=== PATIENT | female | born 1990 | race Caucasian/White ===

== ENCOUNTER 2021-01-29 15:03 | Emergency (ER) | payer MEDICAID, SELFPAY ==
--- NOTE | ~2021-01-29 | XR_ITS ---
EXAMINATION: XR CHEST CLINICAL INFORMATION: Chest pain COMPARISON: No films available at this time TECHNIQUE: Frontal view of the chest was obtained. FINDINGS: No acute finding. Lung andrew are clear. The mediastinal contours are within normal limits. No effusion. XR/XR chest 1V IMPRESSION: No acute finding
[2021-01-29 15:07] VITALS: BP 116/74; BP 121/83; PULSE 86; PULSE 90; RESP 16; TEMP 37.1; O2SAT 100; BMI 21.7
--- NOTE | 2021-01-29 16:57 | ECG_ITS ---
Test Reason : ANXIETY Blood Pressure : / mmHG Vent. Rate : 088 BPM Atrial Rate : 088 BPM P-R Int : 120 ms QRS Dur : 078 ms QT Int : 362 ms P-R-T Axes : 080 -75 030 degrees QTc Int : 438 ms Normal sinus rhythm with sinus arrhythmia Left anterior fascicular block Abnormal ECG When compared with ECG of 18-JUN-2013 12:58, No significant change was found Referred By: Choco Barrientos Electronically Signed By:PRITI JAMES
[2021-01-29] MEDS: ondansetron HCL 4 MG/2 ML VIAL IVPUSH (17:02)
[2021-01-29 17:25] VITALS: BP 113/63; PULSE 79; RESP 20; TEMP 37; O2SAT 100
[2021-01-29] MEDS: LORazepam 2 MG/ML VIAL 0.5 MG IVPUSH (17:44)
[2021-01-29 17:51] LABS: MANUAL DIFF FLAG NO
[2021-01-29 17:53] LABS: Basophils Percent Auto 0.4 % (0-2); Eosinophils Percent Auto 0.1 % (0-4); Imm Gran Abs Auto 0.02 X10*3/uL (0.00-0.03); Imm Gran Pct Auto 0.2 % (0.0-0.4); Lymphocytes Percent Auto 11.7 % (20-40); Mean Corpuscular HGB Conc 33.3 g/dl (31.0-35.0); Mean Corpuscular Hemoglobin 29.1 pg (27.0-33.0); Mean Corpuscular Volume 87.4 fL (80-98); Mean Platelet Volume 10.2 fL (9.4-12.3); Monocytes Absolute Auto 0.3 X10*3/uL (0.1-1.2); Monocytes Percent Auto 3.9 % (2-11); Neutrophils Absolute Auto 7.1 X10*3/uL (2.0-8.3); Neutrophils Percent Auto 83.7 % (45-73); Platelet Count 180 X10*3/uL (160-400); Red Blood Count 4.46 X10*6/uL (4.20-5.50); Red Cell Distribution Width 11.9 % (11.0-16.0); White Blood Count 8.5 X10*3/uL (4.8-10.8)
[2021-01-29 17:54] LABS: Glucose Urine UA NEG (NEG); Leukocyte Esterase Urine NEG (NEG); Nitrite Urine NEG (NEG); PH 5.5 (5.0-8.0); Specific Gravity - Urine 1.015 (1.005-1.025); Urine Blood NEG (NEG); Urine Ketones NEG (NEG); Urine Protein NEG (NEG-TRACE)
[2021-01-29 17:57] LABS: Appearance Urine CLEAR; Color Urine YELLOW; UPreg QC Valid YES; Urine Pregnancy NEGATIVE (NEGATIVE)
[2021-01-29 18:06] LABS: Bacteria Urine TRACE /LPF; RBC Urine 0 /HPF (0); Squamous Epithelial Cell Urine 1+ /LPF; WBC Urine 0 /HPF (0-4)
[2021-01-29 18:24] VITALS: BP 108/69; PULSE 66; RESP 12; O2SAT 98
[2021-01-29] MEDS: Acetaminophen 325 MG TABLET 650 MG PO (18:30)
[2021-01-29 18:31] LABS: Influenza A PCR NEGATIVE (Negative); Influenza B PCR NEGATIVE (Negative); Resp Syncy Virus RNA Qual PCR NEGATIVE (Negative); SARS COV2 PCR INHOUSE NEGATIVE (Negative)
[2021-01-29 18:32] LABS: Alanine Aminotransferase 13 U/L (0-31); Albumin Level 4.2 g/dL (3.5-5.0); Alkaline Phosphatase 86 U/L (39-117); Anion Gap 11 (12-20); Aspartate Amino Transferase 15 U/L (5-31); Bilirubin Total 0.6 mg/dL (0.0-1.0); Blood Urea Nitrogen 9 mg/dL (9-16); Calcium 8.9 mg/dL (8.4-10.2); Carbon Dioxide 26 mmol/L (22-29); Chloride 105 mmol/L (96-108); Creatinine Clr Calc Pharmacy 105.9; Estimated Glomerular Filt Rate > 60; Glucose Random 102 mg/dL (60-115); Potassium 4.5 mmol/L (3.3-5.1); Sodium 137 mmol/L (135-145); Total Protein 6.8 g/dL (6.5-8.0)
[2021-01-29 18:32] LABS: Amphetamine Screen Urine Not Detected (Not Detect); Barbiturates, Urine Not Detected (Not Detect); Benzodiazepines Screen Urine Not Detected (Not Detect); Cannabinoid Screen Urine Not Detected (Not Detect); Cocaine Screen Urine Not Detected (Not Detect); Opiate Screen Urine POSITIVE (Not Detect); Phencyclidine Screen Urine Not Detected (Not Detect)
[2021-01-29 18:38] LABS: Troponin-I High Sensitivity < 3.5 ng/L (<3.5-17.0)
[2021-01-29 18:52] LABS: Thyroid Stimulating Hormone 1.02 uIU/mL (0.32-4.0)
[2021-01-29 19:12] VITALS: BP 123/69; PULSE 71; RESP 16; O2SAT 98
--- NOTE | 2021-01-29 19:33 | MHC.RECOVSUP ---
Reason for consult o Current location:12 o Identified substance use concern: opioid - Withdrawal - Support ? Intervention: o Community resources provided o Harm reduction discussion ? Plan: ? Additional information: I was able to speak with pt and she was very reserved and was very hesitant in engaging with . pt was not interested in resources that had anything to do with MAT or ATS. pt also stated that she does not want to go to any ATS that was state ran. she would much rather go to a private ATS even if she has to pay for one. I tried to self disclose just enough to have her engage but she was not willing. I was not not able to gather any information on her living accommodations and she did not share if she has a hx of mental health. I did leave her with information and encouraged her to call and give it a try.
[2021-01-29] MEDS: Lidocaine HCl Viscous 2 % 15 ML SOLUTION 10 ML MUCOUS MEM (19:35)
[2021-01-29] MEDS: Magnesium Hydrox/Alum Hydrox 30 ML ORAL.SUSP PO (19:35)
[2021-01-29 20:00] VITALS: BP 111/70; PULSE 63; RESP 15; TEMP 36.9; O2SAT 99
--- NOTE | 2021-01-29 20:15 | ED_ITS ---
HPI - Chest Pain General Chief Complaint: Anxiety Stated Complaint: chest pain Time Seen by Provider: 01/29/21 16:28 Source: EMS Mode of arrival: EMS Limitations: no limitations History of Present Illness HPI narrative: This is otherwise healthy 30-year-old female who denies significant past medical history presenting via EMS from urgent care where she reported she has been having chest discomfort since last night with episode of palpitations states started last night felt like burning sensation in the epigastrium and has had similar episodes in the past with anxiety. She otherwise denies any nausea or vomiting. Denies any history of upper respiratory symptoms, cough or fever. No lower extremity swelling. No abdominal pain nausea vomiting or diarrhea. MD complaint: chest discomfort Timing of current episode: episodic Prior episodes: Yes Onset: during rest Pain location: substernal Pain radiation: none Severity: mild Quality: burning Relieving factors: nothing Exacerbating factors: nothing Associated symptoms: palpitations Treatment prior to arrival: none Related Data Previous Rx's Medication Instructions Recorded omeprazole magnesium [Prilosec OTC] 20 mg PO BID #14 tab 01/29/21 Allergies Allergy/AdvReac Type Severity Reaction Status Date / Time No Known Allergies Allergy Unverified 08/13/20 16:55 Review of Systems Review of Systems: Constitutional: No Weight loss, No Fever, No Chills, No Night Sweats, No Fatigue, No Malaise ENT/Mouth: No Hearing loss, No Ear Pain, No Nasal Congestion, No Sinus Pain, No Hoarseness, No sore throat, No Rhinorrhea, No Swallowing Difficulty Eyes: No Eye Pain, No Swelling, No Redness, No Foreign Body, No Discharge, No Vision Changes Cardiovascular: As noted per HPI-chest Pain, No SOB, No Dyspnea on Exertion, No Orthopnea, No Edema, No Palpitations Respiratory: No Cough, No Sputum, No Wheezing, No Smoke Exposure, No Dyspnea Gastrointestinal: No Nausea, No Vomiting, No Diarrhea, No Constipation, No abdominal Pain, No Hematochezia, No Melena Genitourinary: No Dysuria, No Urinary Frequency, No Hematuria, No Urinary Incontinence, No Urgency, No Flank Pain, No Urinary Flow Changes, No Hesitancy Musculoskeletal: No joint pain, No Myalgias, No Joint Swelling Skin: No Skin Lesions, No rash Neuro: No Weakness, No Numbness, No Paresthesias, No Loss of Consciousness, No Dizziness, No Headache Psych: No Social Issues Heme/Lymph: No Bruising, No Bleeding,No Lymphadenopathy Endocrine: No Polyuria, No Polydipsia, No Temperature Intolerance Yes all other systems are reviewed and are negative [facility] Social History Social History Smoking Status: Current every day smoker Use of substances other than those prescribed or required for medical reasons: No Advance Directives: No Advance Directives Information Provided: Yes Physical Exam Vital Signs: Vital Signs: Last Vital Signs Temp 98.5 F 01/29/21 20:00 Pulse 63 01/29/21 20:00 Resp 15 01/29/21 20:00 BP 111/70 01/29/21 20:00 Pulse Ox 99 01/29/21 20:00 Body Mass Index 21.7 Reviewed Const: General: cooperative, healthy appearing and anxious; No intoxicated appearing Nutritional Appearance: average body habitus Orientation/consciousness: patient oriented x3 HENMT: Head: Yes normal to inspection Ears: hearing grossly normal bilaterally Eyes: General: appearance normal, both eyes and all related structures Visual Arreola: normal visual arreola by confrontation Neck: Neck: Yes normal visual inspection, No positive Brudzinski's sign, No positive Kernig's sign and No tender Thyroid: Thyroid normal Chest: Chest palpation & inspection: normal inspection of the chest Resp: Effort & Inspection: normal respiratory effort Auscultation: clear to auscultation bilaterally Cardio: Jugular venous distension: no JVD Rhythm: regular rhythm Heart sounds: S1 normal heart sound present and S2 normal heart sound present GI: Inspection: Yes normal to inspection Palpation (GI): Soft to palpation Percussion: Yes normal to percussion Auscultation: normal bowel sounds : General: Yes no CVA tenderness Back/Spine/Pelvis: Back: no CVA tenderness Skin: General skin exam: no rashes or lesions noted Neuro: General: patient oriented x3 Extrem: General: Yes normal to inspection Course Course Course Narrative: Feels better after GI cocktail seems very anxious given 0.5 mg lorazepam. 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 She otherwise overall feels better. Lab work overall reassuring. personal coach met with patient does not feel she has a problem with opiates and knows the evidence of following up in the future she needs to. MDM - Chest Pain Differential Diagnosis Differential diagnosis: Likely atypical chest pain and costochondritis; Unlikely fracture of rib, pneumothorax, stable angina, unstable angina pectoris, st elevation myocardial infarction, chest pain and biliary colic Differential diagnosis: Anxiety, reflux Lab Data Attestation: I reviewed the patient's lab results. Result diagrams: 01/29/21 17:44 01/29/21 17:44 Labs: Lab Results 01/29/21 01/29/21 01/29/21 Range/Units 17:31 17:31 17:31 WBC (4.8-10.8) X10*3/uL RBC (4.20-5.50) X10*6/uL Hgb (12.0-16.0) g/dl Hct (37-47) % MCV (80-98) fL MCH (27.0-33.0) pg MCHC (31.0-35.0) g/dl RDW (11.0-16.0) % Plt Count (160-400) X10*3/uL MPV (9.4-12.3) fL Immature Gran % (Auto) (0.0-0.4) % Neut % (Auto) (45-73) % Lymph % (Auto) (20-40) % [place] % (Auto) (2-11) % Eos % (Auto) (0-4) % Baso % (Auto) (0-2) % Lymph # (Auto) (1.2-4.9) X10*3/uL [place] # (Auto) (0.1-1.2) X10*3/uL Eos # (Auto) (0.0-0.4) X10*3/uL Baso # (Auto) (0.0-0.2) X10*3/uL Abs Immat Gran (auto) (0.00-0.03) X10*3/uL Absolute Neuts (auto) (2.0-8.3) X10*3/uL Absolute Nucleated RBC (0.0-0.012) X10*3/uL Nucleated RBC % (auto) (0.0-0.2) /100WBC Sodium (135-145) mmol/L Potassium (3.3-5.1) mmol/L Chloride (96-108) mmol/L Carbon Dioxide (22-29) mmol/L Anion Gap (12-20) BUN (9-16) mg/dL Creatinine (0.5-1.4) mg/dL Estim Creat Clear Calc Estimated GFR Random Glucose (60-115) mg/dL Calcium (8.4-10.2) mg/dL Total Bilirubin (0.0-1.0) mg/dL AST (5-31) U/L ALT (0-31) U/L Alkaline Phosphatase (39-117) U/L Troponin I High Sens (<3.5-17.0) ng/L Total Protein (6.5-8.0) g/dL Albumin (3.5-5.0) g/dL TSH (0.32-4.0) uIU/mL Urine Color YELLOW Urine Appearance CLEAR Urine pH 5.5 (5.0-8.0) Ur Specific [place] 1.015 (1.005-1.025) Urine Protein NEG (NEG-TRACE) MG/DL Urine Glucose (UA) NEG (NEG) MG/DL Urine Ketones NEG (NEG) MG/DL Urine Blood NEG (NEG) Urine Nitrite NEG (NEG) Ur Leukocyte Esterase NEG (NEG) Urine RBC 0 (0) /HPF Urine WBC 0 (0-4) /HPF Ur Squamous Epith Cells 1+ /LPF Urine Bacteria TRACE /LPF Urine Test NEGATIVE (NEGATIVE) Urine Opiates Screen POSITIVE H (Not Detect) Ur Barbiturates Screen Not Detected (Not Detect) Ur Phencyclidine Scrn Not Detected (Not Detect) Ur Amphetamines Screen Not Detected (Not Detect) U Benzodiazepines Scrn Not Detected (Not Detect) Urine Cocaine Screen Not Detected (Not Detect) U Marijuana (THC) Screen Not Detected (Not Detect) Coronavirus (PCR) (Negative) Influenza Type A (PCR) (Negative) Influenza Type B (PCR) (Negative) RSV RNA Qual (PCR) (Negative) 01/29/21 01/29/21 01/29/21 Range/Units 17:44 17:44 17:44 WBC 8.5 (4.8-10.8) X10*3/uL RBC 4.46 (4.20-5.50) X10*6/uL Hgb 13.0 (12.0-16.0) g/dl Hct 39.0 (37-47) % MCV 87.4 (80-98) fL MCH 29.1 (27.0-33.0) pg MCHC 33.3 (31.0-35.0) g/dl RDW 11.9 (11.0-16.0) % Plt Count 180 (160-400) X10*3/uL MPV 10.2 (9.4-12.3) fL Immature Gran % (Auto) 0.2 (0.0-0.4) % Neut % (Auto) 83.7 H (45-73) % Lymph % (Auto) 11.7 L (20-40) % [place] % (Auto) 3.9 (2-11) % Eos % (Auto) 0.1 (0-4) % Baso % (Auto) 0.4 (0-2) % Lymph # (Auto) 1.0 L (1.2-4.9) X10*3/uL [place] # (Auto) 0.3 (0.1-1.2) X10*3/uL Eos # (Auto) 0.0 (0.0-0.4) X10*3/uL Baso # (Auto) 0.0 (0.0-0.2) X10*3/uL Abs Immat Gran (auto) 0.02 (0.00-0.03) X10*3/uL Absolute Neuts (auto) 7.1 (2.0-8.3) X10*3/uL Absolute Nucleated RBC 0.000 (0.0-0.012) X10*3/uL Nucleated RBC % (auto) 0.0 (0.0-0.2) /100WBC Sodium 137 (135-145) mmol/L Potassium 4.5 (3.3-5.1) mmol/L Chloride 105 (96-108) mmol/L Carbon Dioxide 26 (22-29) mmol/L Anion Gap 11 L (12-20) BUN 9 (9-16) mg/dL Creatinine 0.74 (0.5-1.4) mg/dL Estim Creat Clear Calc 105.9 Estimated GFR > 60 Random Glucose 102 (60-115) mg/dL Calcium 8.9 (8.4-10.2) mg/dL Total Bilirubin 0.6 (0.0-1.0) mg/dL AST 15 (5-31) U/L ALT 13 (0-31) U/L Alkaline Phosphatase 86 (39-117) U/L Troponin I High Sens < 3.5 (<3.5-17.0) ng/L Total Protein 6.8 (6.5-8.0) g/dL Albumin 4.2 (3.5-5.0) g/dL TSH 1.02 (0.32-4.0) uIU/mL Urine Color Urine Appearance Urine pH (5.0-8.0) Ur Specific [place] (1.005-1.025) Urine Protein (NEG-TRACE) MG/DL Urine Glucose (UA) (NEG) MG/DL Urine Ketones (NEG) MG/DL Urine Blood (NEG) Urine Nitrite (NEG) Ur Leukocyte Esterase (NEG) Urine RBC (0) /HPF Urine WBC (0-4) /HPF Ur Squamous Epith Cells /LPF Urine Bacteria /LPF Urine Test (NEGATIVE) Urine Opiates Screen (Not Detect) Ur Barbiturates Screen (Not Detect) Ur Phencyclidine Scrn (Not Detect) Ur Amphetamines Screen (Not Detect) U Benzodiazepines Scrn (Not Detect) Urine Cocaine Screen (Not Detect) U Marijuana (THC) Screen (Not Detect) Coronavirus (PCR) (Negative) Influenza Type A (PCR) (Negative) Influenza Type B (PCR) (Negative) RSV RNA Qual (PCR) (Negative) 01/29/21 Range/Units 17:44 WBC (4.8-10.8) X10*3/uL RBC (4.20-5.50) X10*6/uL Hgb (12.0-16.0) g/dl Hct (37-47) % MCV (80-98) fL MCH (27.0-33.0) pg MCHC (31.0-35.0) g/dl RDW (11.0-16.0) % Plt Count (160-400) X10*3/uL MPV (9.4-12.3) fL Immature Gran % (Auto) (0.0-0.4) % Neut % (Auto) (45-73) % Lymph % (Auto) (20-40) % [place] % (Auto) (2-11) % Eos % (Auto) (0-4) % Baso % (Auto) (0-2) % Lymph # (Auto) (1.2-4.9) X10*3/uL [place] # (Auto) (0.1-1.2) X10*3/uL Eos # (Auto) (0.0-0.4) X10*3/uL Baso # (Auto) (0.0-0.2) X10*3/uL Abs Immat Gran (auto) (0.00-0.03) X10*3/uL Absolute Neuts (auto) (2.0-8.3) X10*3/uL Absolute Nucleated RBC (0.0-0.012) X10*3/uL Nucleated RBC % (auto) (0.0-0.2) /100WBC Sodium (135-145) mmol/L Potassium (3.3-5.1) mmol/L Chloride (96-108) mmol/L Carbon Dioxide (22-29) mmol/L Anion Gap (12-20) BUN (9-16) mg/dL Creatinine (0.5-1.4) mg/dL Estim Creat Clear Calc Estimated GFR Random Glucose (60-115) mg/dL Calcium (8.4-10.2) mg/dL Total Bilirubin (0.0-1.0) mg/dL AST (5-31) U/L ALT (0-31) U/L Alkaline Phosphatase (39-117) U/L Troponin I High Sens (<3.5-17.0) ng/L Total Protein (6.5-8.0) g/dL Albumin (3.5-5.0) g/dL TSH (0.32-4.0) uIU/mL Urine Color Urine Appearance Urine pH (5.0-8.0) Ur Specific [place] (1.005-1.025) Urine Protein (NEG-TRACE) MG/DL Urine Glucose (UA) (NEG) MG/DL Urine Ketones (NEG) MG/DL Urine Blood (NEG) Urine Nitrite (NEG) Ur Leukocyte Esterase (NEG) Urine RBC (0) /HPF Urine WBC (0-4) /HPF Ur Squamous Epith Cells /LPF Urine Bacteria /LPF Urine Test (NEGATIVE) Urine Opiates Screen (Not Detect) Ur Barbiturates Screen (Not Detect) Ur Phencyclidine Scrn (Not Detect) Ur Amphetamines Screen (Not Detect) U Benzodiazepines Scrn (Not Detect) Urine Cocaine Screen (Not Detect) U Marijuana (THC) Screen (Not Detect) Coronavirus (PCR) NEGATIVE (Negative) Influenza Type A (PCR) NEGATIVE (Negative) Influenza Type B (PCR) NEGATIVE (Negative) RSV RNA Qual (PCR) NEGATIVE (Negative) Imaging Data Chest x-ray: Radiologist's impression: [address] [id number] ReportSigned Patient: Zee Antony AMR#: [id number]: 1990Acct:[id number]/Sex: / FADM Date: 01/29/21Loc: EDAttending Dr: Ordering Physician: Choco Barrientos NP Date of Service: 01/29/21 Procedure(s): XR chest 1V Accession Number(s): [id number] cc: Choco Barrietnos JELLY MAKER~ EXAMINATION: XR CHEST CLINICAL INFORMATION: Chest pain COMPARISON: No films available at this time TECHNIQUE: Frontal view of the chest was obtained. FINDINGS: No acute finding. Lung arreola are clear. The mediastinal contours are within normal limits. No effusion. XR/XR chest 1V IMPRESSION: No acute finding Dictated By:NICHOLE TONEY MDSigned By:<Electronically signed by NICHOLE TONEY MD in OV>01/29/216 DD/ 1657TD/TT: Security Assurance Analyst: GT ECG Data ECG #1: Interpretation: Normal sinus rhythm with sinus arrhythmia Rate 88 Left anterior fascicular block Abnormal ECG When compared with ECG of 18-JUN-2013 12:58, No significant change was found Discharge Plan Discharge Clinical Impression: Acute anxiety Acid reflux disease Qualifiers: Esophagitis presence: esophagitis presence not specified Qualified Code(s): K21.9 - Gastro-esophageal reflux disease without esophagitis Patient Disposition: Home, Self-Care Instructions: Gastroesophageal Reflux Disease (ED), Anxiety (ED) Additional Instructions: [place] diet Gradually increase her diet as tolerated Take her antacid medication prescribed Avoid any illicit substance Follow up with her primary care doctor closely as discussed Return if any concerns or worsening symptoms Thank you Prescriptions: New omeprazole magnesium [Prilosec OTC] 20 mg tablet,delayed release (DR/EC) 20 mg PO BID Qty: 14 RF: 0 Referrals: ED Physician,Generic [Physician] - 2 days (Your primary care doctor)
== END 2021-01-29 21:07 | disposition home or self-care (01) ==
PROVIDERS: Nurse Practitioner Primary Care; Emergency Provider Internal Medicine
DX: F41.9 Anxiety disorder, unspecified (principal); K21.9 Gastro-esophageal reflux disease without esophagitis; Z20.822 Contact with and (suspected) exposure to COVID-19; F17.200 Nicotine dependence, unspecified, uncomplicated; F11.90 Opioid use, unspecified, uncomplicated
CPT/HCPCS: 0241U; 36415; 71045; 80053; 80307; 81001; 81025; 84443; 84484; 85025; 93005; 96374; 96375; 99284; J2060; J2405